=== PATIENT | male | born 1975 | race African-American/Black ===

== ENCOUNTER 2020-04-14 17:31 | Emergency (ER) | payer SELFPAY ==
[~2020-04-14] VITALS: Ht 175.3 cm; Wt 104.5 kg
[2020-04-14] MEDS ORDERED: FAMOTIDINE 20 MG/2 ML VIAL IVP ONE (18:30)
[2020-04-14] MEDS ORDERED: fentaNYL PF VIAL 100 MCG/2 ML VIAL IVP ONE ×2 (18:30→20:30)
[2020-04-14] MEDS ORDERED: ASPIRIN 325 MG TABLET PO ONE (18:30)
[2020-04-14 18:32] LABS: BILIRUBIN,URINE NEGATIVE (NEG); CLARITY,URINE CLEAR; COLOR,URINE YELLOW; NITRITE,URINE NEGATIVE (NEG); PH,URINE 8.5 (<5.0-8.0); PROTEIN,URINE NEGATIVE (NEG-TRACE)
[2020-04-14 18:37] LABS: BARBITURATES NEG (NEG); BENZODIAZEPINES NEG (NEG); CANNABINOIDS NEG (NEG); COCAINE NEG (NEG); METHADONE NEG (NEG); OPIATES NEG (NEG); PHENCYCLIDINE NEG (NEG)
[2020-04-14 18:39] LABS: BASO % 1 % (0-3); EOS # 0.2 x10^3/uL (0.0-0.7); EOS % 5 % (0-3); HEMATOCRIT 41.3 % (39.0-53.0); HEMOGLOBIN 13.7 g/dL (13.0-17.5); LYMPH # 1.9 x10^3/uL (1.0-4.8); LYMPH % 38 % (24-48); MEAN CORPUSCULAR HEMOGLOBIN 28 pg (25-35); MEAN CORPUSCULAR HGB CONC 33 g/dL (31-37); MEAN CORPUSCULAR VOLUME 83 fL (79-100); MONO # 0.6 x10^3/uL (0.0-1.1); MONO % 13 % (0-9); NEUT # 2.2 x10^3/uL (1.8-7.7); NEUT % 44 % (31-73); PLATELET COUNT 246 x10^3/uL (140-400); RED BLOOD COUNT 4.96 x10^6/uL (4.30-5.70); RED CELL DISTRIBUTION WIDTH 14.6 % (11.5-14.5)
[2020-04-14 18:41] LABS: AMPHETAMINE/METHAMPHETAMINE NEG (NEG)
--- NOTE | 2020-04-14 18:41 | PHYS DOC ---
Past Medical History Past Medical History: Asthma, High Cholesterol Additional Past Medical Histor: BIPOLAR (AVIS ORTIZ LIABILITY CLAIMS REPRESENTATIVE) Past Surgical History: Other Additional Past Surgical Histo: I&d OF AXILLA ABCESS (AVIS ORTIZ LIABILITY CLAIMS REPRESENTATIVE) Smoking Status: Never Smoker Alcohol Use: Occasionally Drug Use: None (AVIS ORTIZ LIABILITY CLAIMS REPRESENTATIVE) General Adult EDM: Chief Complaint: CHEST PAIN-NON CARDIAC NATURE HPI: HPI: Patient is a 45 year old male who presents with states that since April 08 he started having mid chest dull aching type pain that is constant. Rates his pain 8 out of 10. 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 He states that he has had fatigue also. He states for the last 2 to 3 months he has had worsening GERD but he has not taken any medication for it. Patient is currently belching during exam. Chest pain is reproducible with pushing on the mid chest area. Patient also states that it worsens when he is breathing or moving. He denies any increase in pain when he is moving his arms. States that he is also having some shortness of breath with this. Patient has a history of bipolar, high cholesterol, abscess. He states he is not taking any medication for his symptoms today. He states he is not been taking aspirin. (AVIS ORTIZ LIABILITY CLAIMS REPRESENTATIVE) Review of Systems: Review of Systems: Constitutional: Denies fever or chills. [] Eyes: Denies change in visual acuity. [] HENT: Denies nasal congestion or sore throat. [] Respiratory: Denies cough. Positive for shortness of breath. [] Cardiovascular: Positive for chest pain or denies edema. [] GI: Denies abdominal pain, nausea, vomiting, bloody stools or diarrhea. Acid reflux. [] : Denies dysuria. [] Musculoskeletal: Denies back pain or joint pain. Chest pain with movement or breathing. [] Integument: Denies rash. [] Neurologic: Denies headache, focal weakness or sensory changes. [] Endocrine: Denies polyuria or polydipsia. [] Lymphatic: Denies swollen glands. [] Psychiatric: Denies depression or anxiety. [] (AVIS ORTIZ LIABILITY CLAIMS REPRESENTATIVE) Heart Score: HEART Score for Chest Pain: HEART Score for Chest Pain Response (Comments) Value History Slighlty/Non-Suspicious 0 ECG Normal 0 Age >45 - < 65 1 Risk Factors 1 or 2 Risk Factors 1 Troponin < Normal Limit 0 Total 2 Risk Factors: Risk Factors: DM, Current or recent (<one month) smoker, HTN, HLP, family history of CAD, obesity. Risk Scores: Score 0 - 3: 2.5% MACE over next 6 weeks - Discharge Home Score 4 - 6: 20.3% MACE over next 6 weeks - Admit for Clinical Observation Score 7 - 10: 72.7% MACE over next 6 weeks - Early Invasive Strategies ([facility],AVIS LIABILITY CLAIMS REPRESENTATIVE) Allergies: Allergies: Allergies Coded Allergies Type Severity Reaction Last Updated Verified Sulfa (Sulfonamide Antibiotics) Allergy Unknown soa 12/03/13 Yes codeine Allergy Unknown soa 12/03/13 Yes ([facility],AVIS LIABILITY CLAIMS REPRESENTATIVE) Physical Exam: PE: Constitutional: Well developed, well nourished, no acute distress, non-toxic appearance. [] HENT: Normocephalic, atraumatic, bilateral external ears normal, oropharynx moist, no oral exudates, nose normal. [] Eyes: PERRLA, EOMI, conjunctiva normal, no discharge. [] Neck: Normal range of motion, no tenderness, supple, no stridor. [] Cardiovascular:Heart rate regular rhythm, no murmur. Chest pain producible with palpation to mid chest. [] Lungs & Thorax: Bilateral breath sounds clear to auscultation [] Abdomen: Bowel sounds normal, soft, no tenderness, no masses, no pulsatile masses. [] Skin: Warm, dry, no erythema, no rash. [] Back: No tenderness, no CVA tenderness. [] Extremities: No tenderness, no cyanosis, no clubbing, ROM intact, no edema. [] Neurologic: Alert and oriented X 3, normal motor function, normal sensory function, no focal deficits noted. [] Psychologic: Affect normal, judgement normal, mood normal. [] ([facility],AVIS LIABILITY CLAIMS REPRESENTATIVE) Current Patient Data: Vital Signs: Vital Signs Date Time Temp Pulse Resp B/P (MAP) Pulse Ox O2 Delivery O2 Flow Rate FiO2 04/14/20 18:05 98.9 22 146/97 (113) 98 Room Air 98.9 (AVIS ORTIZ APRN) EKG: EK and read by Dr. Raya as sinus rhythm with S1, Q3, T3 with non specific pathology. [] (AVIS ORTIZ APRN) Radiology/Procedures: Radiology/Procedures: [] Impression: [place] [id number] IMAGING REPORT Signed PATIENT: ALEENA APARICIO ACCOUNT: [id number] : 1975 LOCATION: ER AGE: 45 SEX: M EXAM STATUS: REG ER ORD. PHYSICIAN: AVIS ORTIZ APRN REASON: chest pain PROCEDURE: PORTABLE CHEST 1V EXAM: AP View of the chest DATE: 04/14/2020 5:55 PM INDICATION: Reason: chest pain / Spl. Instructions: / History: COMPARISON: No Prior FINDINGS: The heart is not enlarged. Mediastinal and hilar contours are normal. No focal parenchymal airspace opacity. No pleural effusion or pneumothorax. IMPRESSION: 1. No radiographic evidence for acute cardiopulmonary process. Electronically signed by: Yazan Bui MD (04/14/2020 6:58 PM) [facility] DI[facility] and SIGNED BY: YAZAN BUI MD DATE: 04/14/[address] [id number] IMAGING REPORT Signed PATIENT: ALEENA APARICIO ACCOUNT: [id number] : 1975 LOCATION: ER AGE: 45 SEX: M EXAM STATUS: REG ER ORD. PHYSICIAN: AVIS ORTIZ APRN REASON: CHEST PAIN WITH BREATHING. SOA. RULE OUT PE PROCEDURE: CT ANGIOGRAPHY CHEST EXAM: CT ANGIOGRAPHY OF THE CHEST WITH AND WITHOUT CONTRAST. HISTORY: Chest pain, shortness of breath. TECHNIQUE: Computed tomographic angiography of the chest was performed before and after the intravenous administration of iodinated contrast. 3-D maximum intensity projections were also performed. One or more of the following individualized dose reduction techniques were utilized for this examination: 1. Automated exposure control. 2. Adjustment of the mA and/or kV according to patient size. 3. Use of iterative reconstruction technique. COMPARISON: None. FINDINGS: Images of the upper abdomen reveal at least moderate diffuse hepatic steatosis. There is focal fatty sparing about the gallbladder fossa. The liver is at least mildly enlarged. Bone windows reveal no suspicious lesions. Limited opacification of the pulmonary arterial tree limits sensitivity. No pulmonary emboli are identified. There is no aortic dissection or aneurysm. There are no pathologically enlarged mediastinal or axillary lymph nodes.. Calcified mediastinal lymph nodes are likely secondary to old granulomatous disease. There is no pleural or pericardial effusion. The heart is not enlarged. Lung windows reveal no infiltrates. IMPRESSION: 1. No pulmonary embolism. 2. Moderate to severe diffuse hepatic steatosis. Hepatomegaly. Electronically signed by: Anni Buck MD (04/14/2020 10:30 PM) [facility] DICTATED and SIGNED BY: ALEENA BUCK MD DATE: 04/14/202229 (AVIS ORTIZ APRN) Course & Med Decision Making: Course & Med Decision Making Pertinent Labs and Imaging studies reviewed. (See chart for details) COVID-19 CRITERIA: The patient was evaluated during the global COVID-19 pandemic, and that diagnosis was suspected/considered upon their initial presentation. Their evaluation, treatment and testing was consistent with current guidelines for patients who present with complaints or symptoms that may be related to COVID-19. See HPI. No extremity edema. Lungs are clear to auscultation all lobes. Skin pink warm and dry. Alert and oriented x4. Speaks in full complete sentences. Ambulatory with a steady gait. Patient has had 2 troponins are negative. Patient chest x-ray shows no acute findings. Patient CT of his chest show no acute findings and there is no PE present. This pain is likely musculoskeletal due to the reproducible pain in his mid chest. Also knowing that the patient has been having increased acid reflux indigestion this could also be a cause. Patient states that he is feeling better. He states that after the Pepcid was given through his IV the pain went away. He also states that the pain when he is laying still he can hardly fillable when he is moving he then can feel the pain. Patient will be sent home with H[place], Norflex, Medrol Dosepak, inhaler, Pepcid. He states that he does have a history of asthma and I explained to him that asthma can be enhanced with indigestion and can also cause his pain. [] (AVIS ORTIZ APRN) Course & Med Decision Making I have reviewed the PA/PIPE TESTER's note and Plan of Care. I was available for consult ation as needed during the patient's visit in the emergency department. I agree with the clinical impression, plans and disposition. (SHARA RIVERA MD) Dragon Disclaimer: Dragon Disclaimer: This electronic medical record was generated, in whole or in part, using a voice recognition dictation system. (AVIS ORTIZ APRN) COVID-19 Patient Risks: Age 65 or older: No Sign of co-morbidity: Yes Exp to person + for COVID: No Exp to PUI: No Travel from affected area: No Lower respiratory symptoms: Yes Fever: No Other: No (AVIS ORTIZ APRN) PPE Use: Full PPE with N95 mask or PAPR: Yes (AVIS ORTIZ APRN) Departure Departure Impression: Primary Impression: Nonspecific chest pain Additional Impressions: Fatigue Qualified Codes: R53.83 - Other fatigue Acid reflux Qualified Codes: K21.9 - Gastro-esophageal reflux disease without esophagitis Disposition: HOME, SELF-CARE Condition: STABLE Referrals: NO PCP (PCP) Patient Instructions: Chest Pain (Nonspecific), Diet for Gastroesophageal Reflu x Disease, Adult, Diet for Gastroesophageal Reflux Disease, Adult, [id number], Fatigue Additional Instructions: Follow-up with primary care provider. If the pain worsens return to the emergency room. Take medications as prescribed and with food. Drink plenty of fluids. Scripts Albuterol Sulfate (PROAIR HFA INHALER) 8.5 Gm Hfa.aer.ad 1 PUFF INH PRN Q6HRS PRN for SHORTNESS OF BREATH, #1 INHALER 0 Refills Prov: AVIS ORTIZ APRN 04/14/20 Tramadol Hcl (TRAMADOL HCL) 50 Mg Tablet 50 MG PO Q6HRS PRN for PAIN, #10 TAB Prov: AVIS ORTIZ APRN 04/14/20 Methylprednisolone (MEDROL) 4 Mg Tab.ds.pk 1 PKG PO UD, #1 PKG Prov: AVIS ORTIZ APRN 04/14/20 Famotidine (PEPCID) 20 Mg Tablet 20 MG PO BID, #20 TAB Prov: AVIS ORTIZ APRN 04/14/20 Orphenadrine Citrate (ORPHENADRINE CITRATE) 100 Mg Tablet.er 1 TAB PO BID, #14 TAB Prov: AVIS ORTIZ APRN 04/14/20 Justicifation of Admission Dx: Justifications for Admission: Justification of Admission Dx: N/A (AVIS ORTIZ APRN) AVIS ORTIZ APRN Apr 14, 2020 18:41 SHARA RIVERA MD Apr 14, 2020 23:22
[2020-04-14 18:46] LABS: AMORPHOUS SEDIMENT,UR PRESENT /HPF; BACTERIA,URINE 0 /HPF (0-FEW); RBC,URINE 0 /HPF (0-2); WBC,URINE 0 /HPF (0-4)
[2020-04-14 18:48] LABS: CALCIUM 9.3 mg/dL (8.5-10.1); CREATININE 1.2 mg/dL (0.7-1.3); GFR 78.5; POTASSIUM 3.6 mmol/L (3.5-5.1)
[2020-04-14 18:49] LABS: PROTHROMBIN TIME PATIENT 12.5 SEC (11.7-14.0)
[2020-04-14 18:54] LABS: ALBUMIN 3.7 g/dL (3.4-5.0); TOTAL BILIRUBIN 0.3 mg/dL (0.2-1.0); TOTAL PROTEIN 7.5 g/dL (6.4-8.2)
--- NOTE | 2020-04-14 19:00 | RAD ---
EXAM: AP View of the chest DATE: 04/14/2020 5:55 PM INDICATION: Reason: chest pain / Spl. Instructions: / History: COMPARISON: No Prior FINDINGS: The heart is not enlarged. Mediastinal and hilar contours are normal. No focal parenchymal airspace opacity. No pleural effusion or pneumothorax. IMPRESSION: 1. No radiographic evidence for acute cardiopulmonary process. Electronically signed by: Yazan Mendenhall MD (04/14/2020 6:58 PM) [facility]
[2020-04-14] MEDS ORDERED: CONTRAST GIVEN. MC PRN (20:00)
[2020-04-14] MEDS ORDERED: IV NORMAL SALINE 1000ML BAG 1,000 ML IV ONE (20:00)
[2020-04-14] MEDS ORDERED: IOHEXOL 350 MG/ML 100 ML VIAL. IV ONE (20:30)
[2020-04-14 22:23] VITALS: BP 120/72
--- NOTE | 2020-04-14 22:33 | RAD ---
EXAM: CT ANGIOGRAPHY OF THE CHEST WITH AND WITHOUT CONTRAST. HISTORY: Chest pain, shortness of breath. TECHNIQUE: Computed tomographic angiography of the chest was performed before and after the intravenous administration of iodinated contrast. 3-D maximum intensity projections were also performed. One or more of the following individualized dose reduction techniques were utilized for this examination: 1. Automated exposure control. 2. Adjustment of the mA and/or kV according to patient size. 3. Use of iterative reconstruction technique. COMPARISON: None. FINDINGS: Images of the upper abdomen reveal at least moderate diffuse hepatic steatosis. There is focal fatty sparing about the gallbladder fossa. The liver is at least mildly enlarged. Bone windows reveal no suspicious lesions. Limited opacification of the pulmonary arterial tree limits sensitivity. No pulmonary emboli are identified. There is no aortic dissection or aneurysm. There are no pathologically enlarged mediastinal or axillary lymph nodes.. Calcified mediastinal lymph nodes are likely secondary to old granulomatous disease. There is no pleural or pericardial effusion. The heart is not enlarged. Lung windows reveal no infiltrates. IMPRESSION: 1. No pulmonary embolism. 2. Moderate to severe diffuse hepatic steatosis. Hepatomegaly. Electronically signed by: Anni Buck MD (04/14/2020 10:30 PM) [facility]
[2020-04-14] MEDS ORDERED: FAMO-63 PO (22:49)
[2020-04-14] MEDS ORDERED: TRAM50TA PO (22:49)
[2020-04-14] MEDS ORDERED: ORPH100T PO (22:49)
[2020-04-14] MEDS ORDERED: ALBU2.5V8 INH (22:49)
[2020-04-14] MEDS ORDERED: METH4TAB2 PO (22:49)
--- NOTE | 2020-04-14 22:53 | EKG ---
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
[2020-04-14] MEDS ORDERED: LIDO:MAALOX 1:1 20 ML SINGLE DOSE. SWSW ONE (23:00)
--- NOTE | 2020-04-16 09:01 | NUR ---
IP: Informed pt of negative COVID test. Pt verbalized understanding.
== END 2020-04-14 23:29 | disposition home or self-care (01) ==
LOC: ER 17:31
DX: K21.9 Gastro-esophageal reflux disease without esophagitis (principal); Z20.828 Contact with and (suspected) exposure to other viral communicable diseases; R07.89 Other chest pain; R53.83 Other fatigue; R06.02 Shortness of breath; J45.909 Unspecified asthma, uncomplicated; E78.00 Pure hypercholesterolemia, unspecified; F31.9 Bipolar disorder, unspecified; Z98.890 Other specified postprocedural states; Z88.2 Allergy status to sulfonamides; Z88.5 Allergy status to narcotic agent
CPT/HCPCS: 36415; 71045; 71275; 80053; 80307; 81001; 83690; 83880; 84484; 85025; 85379; 85610; 93005; 96361; 96374; 96375; 96376; 99285; J3010; J3490; J7030; Q9967; U0003